=== PATIENT | female | born 1980 | race Caucasian/White ===

== ENCOUNTER → 2019-01-15 | Outpatient (CLI) | payer BC ==
--- NOTE | 2019-01-15 16:00 | Diagnostic Imaging Report ---
EXAM: Focused Soft Tissue Ultrasound Evaluation of Unilateral INDICATION: ^NODULE OF SOFT TISSUE COMPARISON: None TECHNIQUE: Hurley scale, color Doppler images of unilateral were obtained. FINDINGS: Sonographic evaluation of the area of clinical interest in the subcutaneous soft tissues of the right anterior shoulder demonstrates a 5 x 3 mm hypoechoic subcutaneous nodule without associated internal vascularity. IMPRESSION: Sebaceous cyst of the right anterior shoulder subcutaneous soft tissues. Signed by: Kathleen Mueller MD on 01/15/2019 3:56 PM
== END ==
LOC: US 15:01
PROVIDERS: ATTEND Family Medicine
DX: M79.89 Other specified soft tissue disorders (principal)
CPT/HCPCS: 76882